=== PATIENT | female | born 1965 | race African-American/Black ===

== ENCOUNTER 2018-11-01 05:15 | Observation (INO) | payer OTHER ==
[~2018-11-01] VITALS: Ht 167.6 cm; Wt 122.5 kg
[~2018-11-01 05:15] MED LIST: ADDERALL 30 MG30 MG PO; EXCEDRIN EXTRA1 EAC1 PO; LISINOPRIL-HCT1 EAC1 PO
--- OUTSIDE RECORDS SUMMARY | 2018-11-01 05:57 | XMS REPORT | Continuity of Care Document ---
Author Author [facility] Organization [facility] Address Unknown Phone Unavailable Care Team Providers Care Aerospace Engineer Officer Armament Name Role Phone MD Chriss, Shanda PP Unavailable Insurance Providers Payer name Policy type / Coverage type Policy ID Covered democrat ID Policy Patrick [facility] (PPO) Encounters Encounter Performer Location Date Lab Report Shanda Banerjee MD [facility] [place] Feb 12, 2014 Medications Medication Instructions Start Date Status ANALPRAM-HC SINGLES 1-2.5 % CREA Apply twice a day with the applicator Jan 26, 2014 Active Vital Signs Date Description Test Result Jan 26, 2014 weight E&M - 3141-9 WEIGHT 263 lb Jan 26, 2014 blood pressure, systolic - 8480-6 BP SYSTOLIC 117 mm Hg Jan 26, 2014 blood pressure, diastolic - 8462-4 BP DIASTOLIC 78 mm Hg Jan 26, 2014 temperature E&M TEMPERATURE 98.5 deg f Jan 26, 2014 pulse rate E&M - 8867-4 PULSE RATE 80 /min Jan 26, 2014 height E&M - 8302-2 HEIGHT 66 in
--- OUTSIDE RECORDS SUMMARY | 2018-11-01 05:57 | XMS REPORT | Continuity of Care Document ---
Author Author [facility] Organization [facility] Address Unknown Phone Unavailable Care Team Providers Care Pewter Caster Name Role Phone MD Chriss, Shanda PP Unavailable Insurance Providers Payer name Policy type / Coverage type Policy ID Covered green party ID Policy Patrick [facility] (PPO) Encounters Encounter Performer Location Date Lab Report Shanda Banerjee MD [facility] [place] Feb 12, 2014 Allergies, Adverse Reactions, Alerts Type Substance Reaction Status Drug allergy PHENERGAN Active Problems Problem Effective Dates Problem Status BLOOD IN STOOL Feb 13, 2014 Active INTERNAL HEMORRHOIDS, WITHOUT COMPLICATION Feb 13, 2014 Active COLON POLYPS Feb 13, 2014 Active Procedures Date Description Comments Jan 26, 2014 smoking status never smoker Medications Medication Instructions Start Date Status ANALPRAM-HC [...]
--- OUTSIDE RECORDS SUMMARY | 2018-11-01 05:57 | XMS REPORT | Summary of Care ---
Author Author [facility] [place] Organization [facility] [place] Address Unknown Phone Unavailable Encounter ASHLEY Miramontes(FIN) [id number] Date(s): 11/03/17 - 11/03/17 [facility] [place] [address] [place] [address]- [phone] Discharge Disposition: Home or Self Care Attending Physician: Joel Cabezas MD Vital Signs No data available for this section Problem List Condition Effective Dates Status Health Status Informant Benign Active hypertension(Confirm ed) Colonic Active polyp(Confirmed) Hematochezia1 02/13/14 Active Internal hemorrhoids 02/13/14 Active without complication2 Laparoscopic-assiste Active d right colectomy(Confirmed) 1Data migrated from [employer] on 04/27/15. 2Data migrated from [employer] on 04/27/15. Allergies, Adverse Reactions, Alerts Substance Reaction Severity Status promethazine1 Active Phenergan Active 1Data migrated from [employer] on 03/29/15. Originally documented as PHENERGAN. Medications No data available for this section Results No data available for this section Immunizations No data available for this section Procedures Procedure Date Related Diagnosis Body Site Colonoscopy Diagnostic laparoscopy Social History Social History Type Response Alcohol Previous treatment: None. Smoking Status Never smoker; Exposure to Tobacco Smoke None; Cigarette Smoking Last 365 Days No; Reg Smoking Cessation Counseling No Assessment and Plan No data available for this section
--- OUTSIDE RECORDS SUMMARY | 2018-11-01 05:57 | XMS REPORT | Clinical Summary ---
Author Author [facility] Address Unknown Phone Unavailable Care Team Providers Care Receiver Stocker Name Role Phone Lissy Ely MD PCP Allergies Comments Active Allergy Reactions Severity Noted Date "Makes her crazy"-psychosis Promethazine High 01/03/2018 Medications End Date Status Medication Sig Dispensed Refills Start Date 03/24/2019 Active adapalene (DIFFERIN) 0.1 Apply 45 g 0 % creamIndications: topically 8 Keratosis pilaris nightly. Active ergocalciferol, vitamin Take by 0 D2, (VITAMIN D2 ORAL) mouth. 09/12/2019 Active buPROPion XL (WELLBUTRIN Take 1 tablet 90 tablet 3 XL) 150 MG 24 hr (150 mg 8 tabletIndications: total) by Anxiety and depression mouth daily. 09/13/2019 Active atorvastatin (LIPITOR) 20 Take 1 tablet 30 tablet 11 MG tabletIndications: (20 mg total) 8 Mixed hyperlipidemia by mouth daily. Default OP ins 09/30/2019 Active venlafaxine XR (EFFEXOR Take 1 90 capsule 3 XR) 75 MG 24 hr capsule (75 8 capsuleIndications: mg total) by Anxiety and depression, mouth daily. Moderate single current episode of major depressive disorder (HCC) Active lisinopril-hydrochlorothi Take 1 tablet 90 tablet 3 azide by mouth 8 (PRINZIDE,ZESTORETIC) daily. 20-25 mg per tabletIndications: Essential hypertension 11/16/2018 Active dextroamphetamine-ampheta Take 1 tablet 30 tablet 0 mine (ADDERALL) 30 mg (30 mg total) 8 tabletIndications: ADHD, by mouth adult residual type daily for 30 days. Max Daily Amount: 30 mg 01/03/2018 Discontinued lisinopril-hydrochlorothi Take 1 tablet 3 azide by mouth 7 (PRINZIDE,ZESTORETIC) daily. 20-25 mg per tablet 01/03/2018 Discontinued dextroamphetamine-ampheta Take 20 mg by 0 mine (ADDERALL) 20 mg mouth daily. tablet 10/17/2018 Discontinued lisinopril-hydrochlorothi Take 1 tablet 90 tablet 3 azide by mouth 8 (PRINZIDE,ZESTORETIC) daily. 20-25 mg per tabletIndications: Essential hypertension 01/27/2018 Discontinued dextroamphetamine-ampheta Take 1 tablet 30 tablet 0 mine (ADDERALL) 20 mg (20 mg total) 8 tabletIndications: by mouth Attention deficit daily for 30 hyperactivity disorder days. Max (ADHD), other type Daily Amount: 20 mg 01/27/2018 Discontinued buPROPion XL (WELLBUTRIN Take 1 tablet 90 tablet 3 XL) 150 MG 24 hr (150 mg 8 tabletIndications: total) by Anxiety and depression mouth daily. 07/29/2018 Discontinued ergocalciferol (VITAMIN Take 1 12 capsule 1 D2) 50,000 unit capsule 8 capsuleIndications: (50,000 Units Vitamin D deficiency total) by mouth once a week. 09/12/2018 Discontinued buPROPion XL (WELLBUTRIN Take 1 tablet 90 tablet 3 XL) 150 MG 24 hr (150 mg 8 tabletIndications: total) by Anxiety and depression mouth daily. 04/27/2018 dextroamphetamine-ampheta Take 1 tablet 90 tablet 0 mine (ADDERALL) 20 mg (20 mg total) 8 tabletIndications: by mouth Attention deficit daily for 90 hyperactivity disorder days. Max (ADHD), other type Daily Amount: 20 mg 03/24/2018 Discontinued triamcinolone (KENALOG) Apply 30 g 0 0.1 % topically 2 8 ointmentIndications: (two) times a Keratosis pilaris day. 07/29/2018 Discontinued hydrocortisone 2.5 % Apply 59 mL 0 lotionIndications: topically 2 8 Keratosis pilaris (two) times a day. 07/29/2018 Discontinued dextroamphetamine-ampheta Take 1 tablet 90 tablet 0 mine (ADDERALL) 30 mg (30 mg total) 8 tabletIndications: Adult by mouth ADHD daily for 120 days. Max Daily Amount: 30 mg 09/12/2018 Discontinued venlafaxine XR (EFFEXOR Take 1 30 capsule 11 XR) 37.5 MG 24 hr capsule (37.5 8 capsuleIndications: mg total) by Moderate single current mouth daily. episode of major depressive disorder (HCC) 08/28/2018 dexmethylphenidate Take 1 tablet 60 tablet 0 (FOCALIN) 5 MG (5 mg total) 8 tabletIndications: ADHD, by mouth 2 adult residual type (two) times a day for 30 days. Max Daily Amount: 10 mg 09/30/2018 Discontinued venlafaxine XR (EFFEXOR Take 1 30 capsule 11 XR) 75 MG 24 hr capsule (75 8 capsuleIndications: mg total) by Anxiety and depression, mouth daily. Moderate single current episode of major depressive disorder (HCC) 10/12/2018 dextroamphetamine-ampheta Take 1 tablet 30 tablet 0 mine (ADDERALL) 30 mg (30 mg total) 8 tabletIndications: ADHD, by mouth adult residual type daily for 30 days. Max Daily Amount: 30 mg 10/02/2018 azithromycin (ZITHROMAX) Take 2 6 tablet 0 250 MG tabletIndications: tablets the 8 Acute URI first day, then 1 tablet daily for 4 days. 10/28/2018 benzonatate (TESSALON Take 1 30 capsule 0 PERLES) 100 MG capsule (100 8 capsuleIndications: Acute mg total) by URI mouth 3 (three) times a day as needed for cough for up to 30 days. Status Hospital, Clinic, or Ordered Dose Route Frequency Start End Date Other Facility Date Administered Medication Ended dexamethasone (DECADRON) 10 mg IM once 09/28/20 injection 10 18 8 mgIndications: Acute URI Active Problems Problem Noted Date Attention deficit disorder 01/03/2018 Abnormal EKG 01/03/2018 Anxiety and depression 01/03/2018 Essential hypertension 01/03/2018 Encounters Care Team Description Date Type Specialty Lissy Ely MD Breast pain 10/28/2018 Hospital Radiology Encounter Lissy Ely MD Breast pain 10/28/2018 Hospital Radiology Encounter Kirsten Espinal MA ADHD, adult residual type (Primary Dx); Essential hypertension 10/14/2018 Telephone Family Medicine Lissy Ely MD Breast pain (Primary Dx) 10/04/2018 Telephone Access Lissy Ely MD Anxiety and depression; Moderate single current episode of major depressive disorder (HCC) 09/30/2018 Orders Only Family Medicine Elio Cesar MA Anxiety and depression; Moderate single current episode of major depressive disorder (HCC) 09/30/2018 Telephone Internal Medicine Lissy Ely MD Acute URI (Primary Dx) 09/28/2018 Office Visit Family Medicine Kirsten Espinal MA 09/13/2018 Telephone Family Medicine Lissy Ely MD Mixed hyperlipidemia (Primary Dx) 09/13/2018 Orders Only Family Medicine Lissy Ely MD ADHD, adult residual type (Primary Dx); Anxiety and depression; Moderate single current episode of major depressive disorder (HCC); Long-term use of high-risk medication; Lipid screening; Screening mammogram, encounter for 09/12/2018 Office Visit Family Medicine Lissy Ely MD ADHD, adult residual type (Primary Dx); Moderate single current episode of major depressive disorder 07/29/2018 Office Visit Family Medicine Kirsten Espinal MA 07/19/2018 Telephone Family Medicine Lissy Ely MD Vitamin D deficiency 06/12/2018 Refill Family Medicine Lissy Ely MD Adult ADHD (Primary Dx); Vitamin D deficiency 05/12/2018 Office Visit Family Lissy Jackson MD Screening mammogram, encounter for (Primary Dx); Cyst, dermoid, face; Skin lump of arm, left; Keratosis pilaris 03/24/2018 Office Visit Family Medicine Lissy Ely MD Essential hypertension (Primary Dx); Anxiety and depression; Attention deficit hyperactivity disorder (ADHD), other type 01/27/2018 Office Visit Family Lissy Jackson MD Vitamin D deficiency (Primary Dx) 01/04/2018 Orders Only Family Medicine Lissy Ely MD Routine check-up (Primary Dx); Essential hypertension; Screening for endocrine disorder; Screening, lipid; Encounter for vitamin deficiency screening; Need for Tdap vaccination; Need for influenza vaccination; Anxiety and depression; Attention deficit hyperactivity disorder (ADHD), other type; Abnormal EKG 01/03/2018 Office Visit Family Medicine after 10/31/2017 Immunizations Name Dates Previously Given Next Due INFLUENZA QUAD 01/03/2018 Tdap 01/03/2018 Family History Medical History Relation Name Comments ADD / ADHD Brother ADD / ADHD Daughter vyvanse and 11/30 adderall No Known Problems Father Breast cancer Maternal went to the bones Grandmother No Known Problems Mother Relation Name Status Comments Brother Alive Brother Alive Daughter Father Alive Maternal Grandmother Mother Alive Social History Date Tobacco Use Types Packs/Day Years Used Former Smoker Cigarettes Smokeless Tobacco: Never Used Alcohol Use Drinks/Week oz/Week Comments Yes wine socially Sex Assigned at Date Recorded Not on file Industry Job Start Date Occupation Not on file Not on file Not on file Travel End Travel History Travel Start No recent travel history available. Last Filed Vital Signs Time Taken Vital Sign Reading 09/28/2018 2:45 PM CDT Blood Pressure 126/87 09/28/2018 2:45 PM CDT Pulse 91 09/28/2018 2:45 PM CDT Temperature 36.8 C (98.3 F) 09/28/2018 2:45 PM CDT Respiratory Rate 20 09/28/2018 2:45 PM CDT Oxygen Saturation 100% - Inhaled Oxygen - Concentration 09/28/2018 2:45 PM CDT Weight 120 kg (265 lb) 09/28/2018 2:45 PM CDT Height 166.4 cm (5' 5.5") 09/28/2018 2:45 PM CDT Body Mass Index 43.43 Plan of Treatment Health Maintenance Due Date Last Done Comments INFLUENZA VACCINE 06/29/2018 01/03/2018 CERVICAL CANCER SCREENING 01/28/2020 01/27/2017 (Previously completed) BREAST CANCER SCREENING 10/28/2020 10/28/2018 COLON CANCER SCREENING 01/27/2022 01/28/2012 (Previously completed) SHINGRIX VACCINE (1 of 2) 03/24/2028 Postponed from 2013 (Not Indicated) HEPATITIS B VACCINES Aged Out No longer eligible based on patient's age to complete this topic IPV VACCINES Aged Out No longer eligible based on patient's age to complete this topic MENINGOCOCCAL VACCINE Aged Out No longer eligible based on patient's age to complete this topic Procedures Comments Procedure Name Priority Date/Time Associated Diagnosis MAMMO BREAST DIAGNOSTIC Routine 10/28/2018 Breast pain TOMOSYNTHESIS BILATERAL 1:43 PM CORPORATE SECURITY MANAGER MICROSCOPIC EXAMINATION Routine 09/12/2018 12:43 PM CDT URINALYSIS, AUTOMATED Routine 09/12/2018 Long-term use of WITH MICROSCOPY 12:43 PM CDT high-risk medication THYROID STIMULATING Routine 09/12/2018 Long-term use of HORMONE 12:43 PM CDT high-risk medication HEMOGLOBIN A1C Routine 09/12/2018 Long-term use of 12:43 PM CDT high-risk medication LIPID PANEL Routine 09/12/2018 Lipid screening 12:43 PM CDT CBC WITH PLATELET AND Routine 09/12/2018 Long-term use of DIFFERENTIAL 12:43 PM CDT high-risk medication COMPREHENSIVE METABOLIC Routine 09/12/2018 Long-term use of PANEL 12:43 PM CDT high-risk medication VITAMIN D 25 HYDROXY Routine 05/12/2018 Vitamin D deficiency LEVEL 11:52 AM CDT ECG 12-LEAD Routine 01/03/2018 Essential hypertension 12:15 PM CORPORATE SECURITY MANAGER VITAMIN B12 LEVEL Routine 01/03/2018 Encounter for vitamin 12:01 PM CORPORATE SECURITY MANAGER deficiency screening VITAMIN D 25 HYDROXY Routine 01/03/2018 Encounter for vitamin LEVEL 12:01 PM CORPORATE SECURITY MANAGER deficiency screening THYROID STIMULATING Routine 01/03/2018 Screening for endocrine HORMONE 12:01 PM CORPORATE SECURITY MANAGER disorder CBC WITH PLATELET AND Routine 01/03/2018 Screening for endocrine DIFFERENTIAL 12:01 PM CORPORATE SECURITY MANAGER disorder COMPREHENSIVE METABOLIC Routine 01/03/2018 Essential hypertension PANEL 12:01 PM CORPORATE SECURITY MANAGER Screening for endocrine disorder LIPID PANEL Routine 01/03/2018 Screening, lipid 12:01 PM CORPORATE SECURITY MANAGER after 10/31/2017 Results * Mammo Breast Diagnostic Tomosynthesis Bilateral (10/28/2018 1:43 PM CORPORATE SECURITY MANAGER) Narrative Performed At PROCEDURE: MAMMO BREAST DIAGNOSTIC TOMOSYNTHESIS BILATERAL [facility] Computer aided detection was utilized for the interpretation of the diagnostic mammography. HISTORY:N64.4 Mastodynia, breast pain COMPARISON: None available DENSITY: The breast are almost entirely fatty. FINDINGS: No abnormal calcification or mass or skin thickening. No architectural distortion. No abnormal adenopathy. IMPRESSION: RECOMMENDATION: Correlation with physical exam and annual mammography. BI-RADS 1:NEGATIVE This facility is accredited by the [employer] for Mammography. A negative x-ray report should not delay biopsy if a dominant or clinically suspicious mass is present.Not all cancers are identified by x-ray. [id number] Procedure Note Interface, Radiology Results Incoming - 10/28/2018 1:55 PM CORPORATE SECURITY MANAGER PROCEDURE: MAMMO BREAST DIAGNOSTIC TOMOSYNTHESIS BILATERAL Computer aided detection was utilized for the interpretation of the diagnostic mammography. HISTORY: N64.4 Mastodynia, breast pain COMPARISON: None available DENSITY: The breast are almost entirely fatty. FINDINGS: No abnormal calcification or mass or skin thickening. No architectural distortion. No abnormal adenopathy. IMPRESSION: RECOMMENDATION: Correlation with physical exam and annual mammography. BI-RADS 1: NEGATIVE This facility is accredited by the [employer] for Mammography. A negative x-ray report should not delay biopsy if a dominant or clinically suspicious mass is present. Not all cancers are identified by x-ray. [id number] Performing Organization Address City/State/Zipcode Phone Number [facility] [address] [place] [address] * Microscopic Examination (09/12/2018 12:43 PM CDT) WBC, UA 0-5 0 - 5 /hpf [facility] RBC, UA 0-2 0 - 2 /hpf [facility] Epithelial cells (non >10 (A) 0 - 10 /hpf [facility] renal) Casts Present (A) None seen /lpf [facility] Cast type Hyaline casts N/A [facility] Mucus, UA Present Not Estab. [facility] Bacteria, UA Few None seen/Few [facility] Narrative Performed At Performed at: [facility] [address], [id number] [employer] Operator: Haile Singleton MD, Phone:[phone] Performing Organization Address [facility] Phone Number [facility] * Urinalysis, automated with microscopy (09/12/2018 12:43 PM CDT) Specific gravity, urine 1.021 1.005 - 1.030 [facility] pH, urine 7.0 5.0 - 7.5 [facility] Color, UA Yellow Yellow [facility] Appearance Clear Clear [facility] WBC esterase, urine Negative Negative [facility] Protein, UA Negative Negative/Trace [facility] Glucose, urine Negative Negative [facility] Ketones, UA Negative Negative [facility] Occult blood, urine Negative Negative [facility] Bilirubin, UA Negative Negative [facility] Urobilinogen, UA 0.2 0.2 - 1.0 mg/dL [facility] Nitrite, UA Negative Negative [facility] Microscopic examination CommentComment: Microscopic [facility] follows if indicated. Microscopic examination See below:Comment: Microscopic [facility] was indicated and was performed. Specimen Urine Narrative Performed At Performed at: [facility] [address], [id number] [employer] Operator: Haile Singleton MD, Phone:[phone] Performing Organization Address [facility] Phone Number [facility] * CBC with platelet and differential (09/12/2018 12:43 PM CDT) Only the most recent of 2 results within the time period is included. WBC 5.1 3.4 - 10.8 x10E3/uL [facility] RBC 4.15 3.77 - 5.28 x10E6/uL [facility] HGB 12.3 11.1 - 15.9 g/dL [facility] HCT 39.0 34.0 - 46.6 % [facility] MCV 94 79 - 97 fL [facility] MCH 29.6 26.6 - 33.0 pg [facility] MCHC 31.5 31.5 - 35.7 g/dL [facility] RDW 12.8 12.3 - 15.4 % [facility] Platelet count 305 150 - 379 x10E3/uL [facility] Neutrophils 38 Not Estab. % [facility] Lymphocytes 53 Not Estab. % [facility] Monocytes 6 Not Estab. % [facility] Eosinophils 2 Not Estab. % [facility] Basophils 1 Not Estab. % [facility] Neutrophils, absolute 2.0 1.4 - 7.0 x10E3/uL [facility] Lymphocytes, absolute 2.7 0.7 - 3.1 x10E3/uL [facility] Monocytes, absolute 0.3 0.1 - 0.9 x10E3/uL [facility] Eosinophils, absolute 0.1 0.0 - 0.4 x10E3/uL [facility] Basophils, absolute 0.0 0.0 - 0.2 x10E3/uL [facility] Immature granulocytes 0 Not Estab. % [facility] Immature grans (abs) 0.0 0.0 - 0.1 x10E3/uL [facility] Specimen Blood Narrative Performed At Performed at:[address] [place], [place] [id number] [employer] Operator: Haile Singleton MD, Phone:[phone] Performing Organization Address [facility] Number [facility] * Thyroid stimulating hormone (09/12/2018 12:43 PM CDT) Only the most recent of 2 results within the time period is included. TSH 2.660 0.450 - 4.500 uIU/mL [facility] Specimen Blood Narrative Performed At Performed at: [id number] [employer] Operator: Haile Singleton MD, Phone:[phone] Performing Organization Address [facility] Phone Number [facility] * Hemoglobin A1c (09/12/2018 12:43 PM CDT) Hemoglobin A1C 5.2 4.8 - 5.6 % [facility] Comment: Prediabetes: 5.7 - 6.4 Diabetes: >6.4 Glycemic control for adults with diabetes: <7.0 Specimen Blood Narrative Performed At Performed at:[address] [place], [place] [id number] [employer] Operator: Haile Singleton MD, Phone:[phone] Performing Organization Address [facility] Phone Number [facility] * Lipid panel (09/12/2018 12:43 PM CDT) Only the most recent of 2 results within the time period is included. Cholesterol 241 (H) 100 - 199 mg/dL [facility] Triglycerides 100 0 - 149 mg/dL [facility] HDL cholesterol 69 >39 mg/dL [facility] VLDL cholesterol gutierrez 20 5 - 40 mg/dL [facility] LDL cholesterol 152 (H) 0 - 99 mg/dL [facility] calculated Non-HDL cholesterol 172 (H) 0 - 129 mg/dL [facility] Specimen Blood Narrative Performed At [facility]formed at: [facility] [address] [place] [address], [id number] [employer] Operator: Haile Singleton MD, Phone:[phone] Performing Organization Address City/State/Zipcode Phone Number [facility] * Comprehensive metabolic panel (09/12/2018 12:43 PM CDT) Only the most recent of 2 results within the time period is included. Glucose 78 65 - 99 mg/dL [facility] BUN, whole blood 13 6 - 24 mg/dL [facility] Creatinine 0.75 0.57 - 1.00 mg/dL [facility] EGFR Non-Afr. [place] 90 >59 mL/min/1.73 [facility] EGFR 104 >59 mL/min/1.73 [facility] BUN/creatinine ratio 17 9 - 23 [facility] Sodium 139 134 - 144 mmol/L [facility] Potassium 4.4 3.5 - 5.2 mmol/L [facility] Chloride 99 96 - 106 mmol/L [facility] CO2 26 20 - 29 mmol/L [facility] Calcium 9.8 8.7 - 10.2 mg/dL [facility] Protein 6.8 6.0 - 8.5 g/dL [facility] Albumin, S 4.5 3.5 - 5.5 g/dL [facility] Globulin, total 2.3 1.5 - 4.5 g/dL [facility] Albumin/globulin ratio 2.0 1.2 - 2.2 [facility] Total bilirubin 0.3 0.0 - 1.2 mg/dL [facility] Alkaline phosphatase 93 39 - 117 IU/L [facility] AST 27 0 - 40 IU/L [facility] ALT 19 0 - 32 IU/L [facility] Specimen Blood Narrative Performed At Performed at: - [facility] [address], [id number] [employer] Operator: Haile Singleton MD, Phone:[phone] Performing Organization Address [facility] Phone Number [facility] * Vitamin D 25 hydroxy level (05/12/2018 11:52 AM CDT) Only the most recent of 2 results within the time period is included. Vitamin D, 25-hydroxy 31.6 30.0 - 100.0 ng/mL [facility] Comment: Vitamin D deficiency has been defined by the [place] [employer] and an Endocrine Society practice guideline as a level of serum 25-OH vitamin D less than 20 ng/mL (1,2). The Endocrine Society went on to further define vitamin D insufficiency as a level between 21 and 29 ng/mL (2). 1. IOM ([place] [employer]). 2010. Dietary reference intakes for calcium and D. [place]: The National Academies Press. 2. Staci MF, Sher NC, Deneen POLLACK, et al. Evaluation, treatment, and prevention of vitamin D deficiency: an Endocrine Society clinical practice guideline. JCEM. 2010; 96(7):1911-30. Specimen Blood Narrative Performed At Performed at: - [facility] [address], [id number] [employer] Operator: Haile Singleton MD, Phone:[phone] Performing Organization Address [facility] Phone Number [facility] * ECG 12 lead (01/03/2018 12:15 PM CORPORATE SECURITY MANAGER) Ventricular rate 80 [facility] Atrial rate 80 [facility] KS interval 154 [facility] QRSD interval 82 [facility] QT interval 402 [facility] QTC interval 463 [facility] P axis 1 39 [facility] QRS axis 1 -4 [facility] T wave axis 7 [facility] EKG impression Normal sinus rhythm-Possible [facility] Left atrial enlargement-T wave abnormality, consider anterior ischemia-Prolonged QT-Abnormal ECG-No previous ECGs available- Performing Organization Address [facility] Phone Number [facility] [address] [place] [address] * Vitamin B12 level (01/03/2018 12:01 PM CORPORATE SECURITY MANAGER) Vitamin B12 971 232 - 1,245 pg/mL [facility] Specimen Blood Narrative Performed At Performed at:01 - [facility] [address], [id number] [employer] Operator: Haile Singleton MD, Phone:[phone] Performing Organization Address City/State/Zipcode Phone Number [facility] after 10/31/2017 Insurance Payer Benefit Subscriber ID Type Phone Address Plan / Group [facility] xxxxxxxxx HMO/PPO THCARE CHOICE/CHO ICE + Advance Directives Patient has advance care planning documents on file. For more information, kevin lane contact: Peter Willis [address] [place] [address]
--- OUTSIDE RECORDS SUMMARY | 2018-11-01 05:57 | XMS REPORT | Continuity of Care Document ---
Author Author [facility] Interface Address Unknown Phone Unavailable Problems Problem Status Onset Date Classification Date Reported Comments Source M54.2 - CERVICALGIA Active 11/03/2017 [facility] [place] 626.2 - EXCESSIVE MENST Active 04/08/2015 [facility] [place] BLOOD IN STOOL Active 02/13/2014 Condition 02/12/2014 [facility] INTERNAL HEMORRHOIDS, WITHOUT COMPLICATION Active 02/13/2014 Condition 02/12/2014 [facility] COLON POLYPS Active 02/13/2014 Condition 02/12/2014 [facility] Hematochezia<sup>1</sup> Active 02/13/2014 Problem 11/06/2017 Data migrated from [employer] on 04/27/15. [facility] [place] Internal hemorrhoids without complication<sup>2</sup> Active 02/13/2014 Problem 11/06/2017 Data migrated from [employer] on 04/27/15. [facility] [place] V76.51 Active 01/29/2014 [facility] UNK Active 01/29/2014 [facility] Benign hypertension Active Problem 11/06/2017 [facility] [place],[facility] Colonic polyp Active Problem 11/06/2017 [facility] [place],[facility] Laparoscopic-assisted right colectomy Active Problem 11/06/2017 [facility] [place],[facility] Medications Medication Details Route Status Patient Instructions Ordering Provider Order Date Source Flumazenil 0.1 mg, 1 mL, Route: IVP, Drug form: INJ, Q5Min, Dosing Weight 118.182, kg, PRN Other -See Comment, Start date: 02/13/14 12:09:00, Duration: 30 day, Stop date: 03/15/14 12:08:00(Same as: Romazicon) Inactive 02/13/2014 [facility] Naloxone 0.1 mg, 0.25 mL, Route: IVP, Drug form: INJ, Q2MIN, Dosing Weight 118.182, kg, PRN Narcotic Reversal, Start date: 02/13/14 12:09:00, Duration: 4 doses or times, Stop date: Limited # of timesSame as N arcan Inactive 02/13/2014 [facility] Sodium Chloride 0.154 MEQ/ML Injectable Solution 500 mL, Rate: 25 ml/hr, Infuse over: 20 hr, Route: IV, Dosing Weight 118.182 kg, Total Volume: 500, Start date: 02/13/14 9:15:00, Duration: 30 day, Stop date: 03/15/14 9:14:00 Inactive 02/13/2014 [facility] Hydrochlorothiazide 25 MG / Lisinopril 20 MG Oral Tablet 1 tab, PO, Daily, # 30 tab, 0 Refill(s) Active 02/09/2014 [facility] ANALPRAM-HC SINGLES 1-2.5 % CREA Apply twice a day with the applicator Active 01/26/2014 [facility] Allergies, Adverse Reactions, Alerts Substance Category Reaction Severity Reaction type Status Date Reported Comments Source PHENERGAN Drug allergy PHENERGAN 01/26/2014 [facility] promethazine<sup>1</sup> Assertion Drug allergy Active 01/26/2014 Data migrated from [employer] on 03/29/15. Originally documented as PHENERGAN. OPIJuan Diego [place] Phenergan Assertion Drug allergy Active [facility] [place] Immunizations Immunization Date Given Site Status Last Updated Comments Source Results Order Name Results Value Reference Range Date Interpretation Comments Source Spine cervical series DX Spine cervical series DX EXAM: Spine cervical series DX HISTORY: - pain cervical COMPARISON: None AP, odontoid, lateral and oblique views of the cervical spine. AP alignment is normal. There is no evidence of vertebral body or disc space height loss. No fracture is seen. No significant neural foraminal narrowing is radiographically apparent. IMPRESSION: Unremarkable radiographic appearance of the cervical spine. 11/03/2017 - - Read by: Zack Mott MD Dictated Date/time: 11/03/17 14:11 Electronically Signed by: Zack Mott MD 11/03/17 14:12 FINAL REPORT TIBURCIO [facility]man URINE CHEM U Preg Negative (02/13/2014 08:00:00 [facility]) Negative 02/13/2014 [facility] ELECTROLYTES AGAP 11.4 meq/L 10.0 - 20.0 02/09/2014 [facility] ELECTROLYTES eGFR 99 mL/min/1.73m2 02/09/2014 1Result Comment: The eGFR is calculated using the CKD-EPI formula. In most young, healthy individuals the eGFR will be >90 mL/min/1.73m2. The eGFR declines with age. An eGFR of 60-89 may be normal in some populations, particularly the elderly, for whom the CKD-EPI formula has not been extensively validated. Use of the eGFR is not recommended in the following populations: Individuals with unstable creatinine concentrations, including patients and those with serious co-morbid conditions. Patients with extremes in muscle mass or diet. The data above are obtained from the National Kidney Disease Education Program (NKDEP) which additionally recommends that when the eGFR is used in patients with extremes of body mass index for purposes of drug dosing, the eGFR should be multiplied by the estimated BMI. [facility] ELECTROLYTES Glucose Lvl 90 mg/dL 70 - 99 02/09/2014 2Interpretive Data: Adult reference range values reflect the clinical guidelines of the [place] [employer]. [facility] ELECTROLYTES BUN 17 mg/dL 7 - 22 02/09/2014 [facility] ELECTROLYTES Calcium Lvl 9.5 mg/dL 8.5 - 10.5 02/09/2014 [facility] ELECTROLYTES Sodium Lvl 137 meq/L 135 - 145 02/09/2014 [facility] ELECTROLYTES Creatinine Lvl 0.8 mg/dL 0.5 - 1.4 02/09/2014 [facility] ELECTROLYTES Chloride Lvl 103 meq/L 95 - 109 02/09/2014 [facility] ELECTROLYTES CO2 27 meq/L 24 - 32 02/09/2014 [facility] ELECTROLYTES Potassium Lvl 4.4 meq/L 3.5 - 5.1 02/09/2014 [facility] HEMATOLOGY Hgb 13.3 g/dL 12.0 - 16.0 02/09/2014 [facility] HEMATOLOGY Hct 39.5 % 36.0 - 48.0 02/09/2014 [facility] Vital Signs Vital Sign Value Date Comments Source Diastolic (mm Hg) 79 02/13/2014 [facility] Systolic (mm Hg) 154 02/13/2014 [facility] Respitory Rate 18 02/13/2014 [facility] Systolic (mm Hg) 141 02/13/2014 [facility] Diastolic (mm Hg) 81 02/13/2014 [facility] Respitory Rate 18 02/13/2014 [facility] Diastolic (mm Hg) 71 02/13/2014 [facility] Respitory Rate 17 02/13/2014 [facility] Systolic (mm Hg) 138 02/13/2014 [facility] Heart Rate 78 02/09/2014 [facility] Temperature Oral (F) 98.6 F 02/09/2014 [facility] Height 167.64 cm 02/09/2014 [facility] BMI Calculated 42.05 02/09/2014 [facility] Weight 118.182 02/09/2014 [facility] Weight 263 01/26/2014 [facility] Systolic (mm Hg) 117 01/26/2014 [facility] Diastolic (mm Hg) 78 01/26/2014 [facility] Temperature Oral (F) 98.5 F 01/26/2014 [facility] Heart Rate 80 01/26/2014 [facility] Height 66 01/26/2014 [facility] Encounters Location Location Details Encounter Type Encounter Number Reason For Visit Attending Provider ADM Date DC Date Status Source [facility] Lab Report [id number] Shanda Banerjee MD 02/12/2014 02/12/2014 [facility] Bedded Outpatient [id number] Shanda Banerjee 02/13/2014 02/13/2014 [facility] - [place] [facility] [id number] Joel Cabezas 11/03/2017 11/04/2017 [facility] [place] Procedures Procedure Code Date Perfomer Comments Source Colonoscopy [id number] [facility] [place] Diagnostic laparoscopy [id number] [facility] [place] Colonoscopy [id number] [facility] Diagnostic laparoscopy [id number] [facility]
--- OUTSIDE RECORDS SUMMARY | 2018-11-01 05:57 | XMS REPORT | Summary of Care ---
Author Organization Unknown Address Unknown Phone Unavailable Encounter Dates Location Diagnoses Discharge Providers Disposition 02/13/2014 [facility] 02/13/2014 [address] [place], [place] [id number] [place] [address] Reason for Visit V76.51 Vital Signs 1 2 3 Most recent to oldest [Reference Range]: 167.64 cm (02/09/2014 13:58:00 [facility]) Height 98.6 DegF (02/09/2014 14:19:00 [facility]) Temperature Oral [96.4-99.1 DegF] 154 mmHg *HI* (02/13/2014 10:30:00 [facility]) 141 mmHg *HI* (02/13/2014 10:15:00 [facility]) 138 mmHg (02/13/2014 10:00:00 [facility]) Systolic Blood Pressure [90-140 mmHg] 79 mmHg (02/13/2014 10:30:00 [facility]) 81 mmHg (02/13/2014 10:15:00 [facility]) 71 mmHg (02/13/2014 10:00:00 [facility] Diastolic Blood Pressure [60-90 mmHg] 18 BRMIN (02/13/2014 10:30:00 [facility]) 18 BRMIN (02/13/2014 10:15:00 [facility]) 17 BRMIN (02/13/2014 10:00:00 [facility]) Respiratory Rate [14-20 BRMIN] 78 bpm (02/09/2014 14:19:00 [facility]) Peripheral Pulse Rate [60-100 bpm] 118.182 kg (02/09/2014 13:58:00 [facility]) Weight 42.05 m2 (02/09/2014 13:58:00 [facility]) Body Mass Index Problem List Condition Effective Dates Status Health Status Informant Benign Active hypertension(Confirm ed) Colonic Active polyp(Confirmed) Laparoscopic-assiste Active d right colectomy(Confirmed) Allergies, Adverse Reactions, Alerts Status Substance Reaction Severity Active Phenergan Medications Medication Instructions Start Date Stop Date Status flumazenil 0.1 mg, 1 mL, Route: IVP, Drug 02/13/2014 02/13/2014 Discontinued form: INJ, Q5Min, Dosing Weight 118.182, kg, PRN Other -See Comment, Start date: 02/13/14 12:09:00, Duration: 30 day, Stop date: 03/15/14 12:08:00 (Same as: Romazicon) flumazenil 0.2 mg, 2 mL, Route: IVP, Drug 02/13/2014 02/13/2014 Discontinued form: INJ, PRN, Dosing Weight 118.182, kg, PRN Other -See Comment, Start date: 02/13/14 12:09:00, Duration: 1 doses or times, Stop date: Limited # of times (Same as: Romazicon) hydrochlorothiazide- 1 tab, PO, Daily, # 30 tab, 0 02/09/2014 Ordered lisinopril 25 mg-20 Refill(s) mg oral tablet naloxone 0.1 mg, 0.25 mL, Route: IVP, Drug 02/13/2014 02/13/2014 Discontinued form: INJ, Q2MIN, Dosing Weight 118.182, kg, PRN Narcotic Reversal, Start date: 02/13/14 12:09:00, Duration: 4 doses or times, Stop date: Limited # of times Same as Narcan Sodium Chloride 0.9% 500 mL, Rate: 25 ml/hr, Infuse 02/13/2014 02/13/2014 Discontinued IV 500 mL over: 20 hr, Route: IV, Dosing Weight 118.182 kg, Total Volume: 500, Start date: 02/13/14 9:15:00, Duration: 30 day, Stop date: 03/15/14 9:14:00 Results ELECTROLYTES Most recent to 1 oldest [Reference Range]: Sodium Lvl [135-145 137 mEq/L mEq/L] (02/09/2014 14:30:00 [facility]) Potassium Lvl 4.4 mEq/L [3.5-5.1 mEq/L] (02/09/2014 [facility]) Chloride Lvl [95-109 103 mEq/L mEq/L] (02/09/2014 [facility]) CO2 [24-32 mEq/L] 27 mEq/L (02/09/2014 [facility]) AGAP [10.0-20.0 11.4 mEq/L mEq/L] (02/09/2014 [facility]) CHEM PANEL Most recent to 1 oldest [Reference Range]: Creatinine Lvl 0.8 mg/dL [0.5-1.4 mg/dL] (02/09/2014 [facility]) eGFR 99 mL/min/1.73m2 1 *NA* (02/09/2014 [facility]) BUN [7-22 mg/dL] 17 mg/dL (02/09/2014 [facility]) Glucose Lvl [70-99 90 mg/dL 2 mg/dL] (02/09/2014 [facility]) Calcium Lvl 9.5 mg/dL [8.5-10.5 mg/dL] (02/09/2014 [facility]) 1Result Comment: The eGFR is calculated using [...] from the National Kidney Disease Education Program ( NKDEP) which additionally recommends that when the eGFR is used in patients with extremes of body mass index for purposes of drug dosing, the eGFR should be mul tiplied by the estimated BMI. 2Interpretive Data: Adult reference range values reflect the clinical guidelines of the [place] [employer]. URINE CHEM Most recent to 1 oldest [Reference Range]: U Preg [Negative] Negative (02/13/2014 08:00:00 [facility]) HEMATOLOGY Most recent to 1 oldest [Reference Range]: Hgb [12.0-16.0 g/dL] 13.3 g/dL (02/09/2014 14:30:00 [facility]) Hct [36.0-48.0 %] 39.5 % (02/09/2014 14:30:00 [facility]) Medications Administered During Your Visit No data available for this section Immunizations No data available for this section Procedures Procedure Type Body Site Date of Procedure Related Diagnosis Colonoscopy Diagnostic laparoscopy Social History Social History Type Response Alcohol Previous treatment: None. Smoking Status Use: Never smoker. Tobacco smoke exposure: None. Did the Patient Smoke Cigarettes Anytime During the Last 365 Days? No. Cessation Counseling Provided? No.
[2018-11-01] MEDS ORDERED: CEFAZOLIN SOD 1 GM/D5W 50ML 50 ML IV ONE (06:16)
[2018-11-01] MEDS ORDERED: HYDROMORPHONE 2MG/ML 2 MG/ML ML ONE (08:13)
[2018-11-01] MEDS ORDERED: BACITRACIN 50,000 UNIT VIAL ONE (08:31)
[2018-11-01] MEDS ORDERED: ACETAMINOPHEN 325 MG TAB PO PRN (14:45)
[2018-11-01] MEDS ORDERED: HYDROMORPHONE 1MG/1ML INJ IV PRN (14:45)
[2018-11-01] MEDS ORDERED: ONDANSETRON HCL INJ 2 MG/ML VIAL ONE ×2 (15:01→19:12)
[2018-11-01] MEDS ORDERED: FENTANYL CITRATE/PF 100MCG/2 ML INJ ONE ×2 (15:03→17:33)
[2018-11-01] MEDS ORDERED: METOCLOPRAMIDE HCL 10 MG/2ML VIAL ONE (15:08)
--- OUTSIDE RECORDS SUMMARY | 2018-11-01 15:55 | XMS REPORT | Clinical Summary ---
Author Author [facility] [place] [facility] Address Unknown Phone Unavailable Care Team Providers Care [employer] Name Role Phone Lissy Ely MD PCP [...] 10/28/2018 Breast pain TOMOSYNTHESIS BILATERAL 1:43 PM TILE SETTER MICROSCOPIC EXAMINATION Routine 09/12/2018 12:43 PM CDT [...] 12-LEAD Routine 01/03/2018 Essential hypertension 12:15 PM TILE SETTER VITAMIN B12 LEVEL Routine 01/03/2018 Encounter for vitamin 12:01 PM TILE SETTER deficiency screening VITAMIN D 25 HYDROXY Routine 01/03/2018 Encounter for vitamin LEVEL 12:01 PM TILE SETTER deficiency screening THYROID STIMULATING Routine 01/03/2018 Screening for endocrine HORMONE 12:01 PM TILE SETTER disorder CBC WITH PLATELET AND Routine 01/03/2018 Screening for endocrine DIFFERENTIAL 12:01 PM TILE SETTER disorder COMPREHENSIVE METABOLIC Routine 01/03/2018 Essential hypertension PANEL 12:01 PM TILE SETTER Screening for endocrine disorder LIPID PANEL Routine 01/03/2018 Screening, lipid 12:01 PM TILE SETTER after 10/31/2017 Results * Mammo Breast Diagnostic Tomosynthesis Bilateral (10/28/2018 1:43 PM TILE SETTER) Narrative Performed At PROCEDURE: MAMMO BREAST DIAGNOSTIC TOMOSYNTHESIS BILATERAL MEGAN Computer aided detection was utilized for the interpretation of the diagnostic mammography. HISTORY:N64.4 Mastodynia, breast pain COMPARISON: None available DENSITY: The breast are almost entirely fatty. FINDINGS: No abnormal calcification or mass or skin thickening. No architectural distortion. No abnormal adenopathy. IMPRESSION: RECOMMENDATION: Correlation with physical exam and annual mammography. BI-RADS 1:NEGATIVE This facility is accredited by the [place] [employer] for Mammography. A negative x-ray report should not delay biopsy if a dominant or clinically suspicious mass is present.Not all cancers are identified by x-ray. [id number] Performing Organization Address [facility]/Zipcode Phone Number [facility] [address] [place] [address] * Microscopic Examination (09/12/2018 12:43 PM CDT) [...] [facility] Narrative Performed At Performed at: - [facility] [address] [place], [id number] Equine Manager: Haile Singleton MD, Phone:[phone] Performing Organization Address City/[facility]/Zipcode Phone Number [facility] * Urinalysis, automated with [...] performed. Specimen Urine Narrative Performed At Performed at:01 - [facility] [address] [place], [id number] Equine Manager: Haile iSngleton MD, Phone:[phone] Performing Organization Address City/State/Zipcode Phone Number [facility] * CBC with platelet [...] Specimen Blood Narrative Performed At Performed at: [id number] Equine Manager: Haile Singleton MD, Phone:[phone] Performing Organization Address [facility] [place] Phone Number [facility] * Thyroid stimulating hormone (09/12/2018 12:43 PM CDT) Only the most recent of 2 results within the time period is included. TSH 2.660 0.450 - 4.500 uIU/mL [facility] Specimen Blood Narrative Performed At Performed at: [id number] Equine Manager: Haile Singleton MD, Phone:[phone] Performing Organization Address [facility] [place] Phone Number [facility] * Hemoglobin A1c (09/12/2018 12:43 PM CDT) Hemoglobin A1C 5.2 4.8 - 5.6 % [facility] Comment: Prediabetes: 5.7 - 6.4 Diabetes: >6.4 Glycemic control for adults with diabetes: <7.0 Specimen Blood Narrative Performed At Performed at: [id number] Equine Manager: Haile Singleton MD, Phone:[phone] Performing Organization Address [facility] [place] Phone Number [facility] * Lipid panel (09/12/2018 12:43 PM CDT) [...] Specimen Blood Narrative Performed At Performed at: [id number] Equine Manager: Haile Singleton MD, Phone:[phone] Performing Organization Address [facility] Phone Number [facility] * Comprehensive metabolic panel (09/12/2018 12:43 PM CDT) Only the most recent of 2 results within the time period is included. Glucose 78 65 - 99 mg/dL [facility] BUN, whole blood 13 6 - 24 mg/dL [facility] Creatinine 0.75 0.57 - 1.00 mg/dL [facility] EGFR Non-Afr. [place] 90 >59 mL/min/1.73 [facility] EGFR 104 >59 [...] Blood Narrative Performed At Performed at:01 - [facility] [address] [place], [id number] Equine Manager: Haile Singleton MD, Phone:[phone] Performing Organization Address [facility] [place] Phone Number [facility] * Vitamin D 25 hydroxy level (05/12/2018 11:52 AM CDT) Only the most recent of 2 results within the time period is included. Vitamin D, 25-hydroxy 31.6 30.0 - 100.0 ng/mL [facility] Comment: Vitamin D deficiency has been defined by the [place] of Medicine and an Endocrine Society practice guideline as a level of serum 25-OH vitamin D less than 20 ng/mL (1,2). The Endocrine Society went on to further define vitamin D insufficiency as a level between 21 and 29 ng/mL (2). 1. IOM ([place] of Medicine). 2010. Dietary reference intakes for calcium and D. [place]: The National Academies Press. 2. Staci MF, Sher NELSON, Deneen POLLACK, et al. Evaluation, treatment, and prevention of vitamin D deficiency: an Endocrine Society clinical practice guideline. JCEM. 2010; 96(7):1911-30. Specimen Blood Narrative Performed At Performed at: - [facility] [place] [facility] [address] [place], [id number] Equine Manager: Haile Singleton MD, Phone:[phone] Performing Organization Address City/[facility] Phone [facility] * ECG 12 lead (01/03/2018 12:15 PM TILE SETTER) Ventricular rate 80 [facility] Atrial rate 80 [facility] AK interval 154 [facility] QRSD interval 82 [facility] QT interval 402 [facility] QTC interval 463 [facility] P axis 1 39 [facility] QRS axis 1 -4 [facility] T wave axis 7 [facility] EKG impression Normal sinus rhythm-Possible [facility] Left atrial enlargement-T wave abnormality, consider anterior ischemia-Prolonged QT-Abnormal ECG-No previous ECGs available- Performing Organization Address [facility] Phone Number [facility] [address] [place] [address] * Vitamin B12 level (01/03/2018 12:01 PM TILE SETTER) Vitamin B12 971 232 - 1,245 pg/mL [facility] Specimen Blood Narrative Performed At Performed at: [facility] [address] [place], [id number] Equine Manager: Haile Singleton MD, Phone:[phone] Performing Organization Address [facility] Phone Number [facility] after 10/31/2017 Insurance Payer Benefit Subscriber ID Type Phone Address Plan / Group [facility] xxxxxxxxx HMO/PPO THCARE CHOICE/CHO ICE + Advance Directives Patient has advance care planning documents on file. For more information, kevin lane contact: Peter Willis [address] [place] [address]
[2018-11-01] MEDS: LACTATED RINGER'S 1,000 ML IV SCH (16:15)
[2018-11-01] MEDS: CEFAZOLIN SOD 1 GM/D5W 50ML 50 ML IV SCH ×2 (16:45→21:19)
[2018-11-01 16:51] VITALS: BP 183/90
[2018-11-01] MEDS ORDERED: DOCUSATE SODIUM 100 MG CAP PO SCH (17:00)
[2018-11-01 17:04] VITALS: BP 187/77
[2018-11-01 17:05] VITALS: BP 187/77
[2018-11-01] MEDS ORDERED: MIDAZOLAM HCL 2 MG/2 ML VIAL ONE (17:33)
[2018-11-01] MEDS: HYDROMORPHONE 2MG/ML 2 MG/ML ML IV PRN ×3 (18:40→23:03)
[2018-11-01] MEDS: ONDANSETRON HCL 4 MG ORAL DISINTEGRATING TAB PO PRN ×2 (18:40→23:03)
[2018-11-01] MEDS ORDERED: LIDOCAINE HCL 2% LOCAL INJ 5 ML SDV VIAL INJ ONE (19:12)
[2018-11-01] MEDS ORDERED: SEVOFLURANE INHAL SOLN 250 ML PEN BTL ONE (19:12)
[2018-11-01] MEDS ORDERED: ACETAMINOPHEN 1000 MG/100 ML IV ONE (19:12)
[2018-11-01] MEDS ORDERED: KETOROLAC TROMETHAMINE 30 MG/ML VIAL ONE (19:12)
[2018-11-01] MEDS ORDERED: GLYCOPYRROLATE INJ 1MG/ 5 ML SYR ONE (19:12)
[2018-11-01] MEDS ORDERED: PROPOFOL IV EMULSION 10 MG/ML 20 ML VIAL ONE (19:12)
[2018-11-01] MEDS ORDERED: NEOSTIGMINE 5 MG/5ML SYR ONE (19:12)
[2018-11-01] MEDS ORDERED: ROCURONIUM BROMIDE 10 MG/ML 5ML VIAL ONE (19:12)
[2018-11-01] MEDS ORDERED: DEXAMETHASONE SOD PHOS INJ 4 MG/ML VIAL ONE (19:12)
[2018-11-01 20:00] VITALS: BP 153/69
[2018-11-01] MEDS: DOCUSATE SODIUM 100 MG CAP PO SCH (21:19)
[2018-11-01 23:19] VITALS: BP 153/69
[2018-11-02] VITALS (8 sets, daily range): BP systolic 103–153; BP diastolic 59–69
[2018-11-02] MEDS: LACTATED RINGER'S 1,000 ML IV SCH ×3 (00:44→20:44)
[2018-11-02] MEDS: ONDANSETRON HCL 4 MG ORAL DISINTEGRATING TAB PO PRN ×5 (03:17→20:37)
[2018-11-02] MEDS: HYDROMORPHONE 2MG/ML 2 MG/ML ML IV PRN ×2 (03:17→08:14)
[2018-11-02] MEDS: CEFAZOLIN SOD 1 GM/D5W 50ML 50 ML IV SCH ×2 (06:18→22:00)
--- NOTE | 2018-11-02 08:46 | Operative Report ---
DATE OF PROCEDURE: November 01, 2018 PREOPERATIVE DIAGNOSES 1. Macromastia. 2. Abdominal lipodystrophy with diastasis recti. PROCEDURES 1. Bilateral breast reduction. 2. Abdominoplasty with plication of diastasis recti. ANESTHESIA: General. HISTORY: The patient is a 53-year-old female with said diagnoses. Risks, benefits and alternatives of treatment were discussed with the patient. She has signed the [place] consent forms. DETAILS OF PROCEDURE: Patient was marked preoperatively in the holding area in the upright position. She was then brought to the operating theater, and after the induction of adequate general anesthesia, she was prepped and draped in a supine position. A time out was performed. The patient had been marked using standard inferior pedicle Tre pattern technique. The nipple areolar complexes were then circumscribed with a 45 mm cookie cutter. Twelve centimeter wide pedicles were then marked out, and then the pedicles were de-epithelialized using a scalpel. The wound beds were made hemostatic using electrocautery. The medial and lateral edges of the pedicle were then developed using electrocautery through the full thickness of the breast tissue down to the prepectoral fascia of the chest wall. Around the apex of the nipple areolar complexes, care was taken to ensure that several centimeters of tissue remained cephalad to the nipple areolar complexes to ensure adequate vascularity. Once the pedicles had been completely developed, they were left in situ. Care taken not to shear them off the prepectoral fascia. At this point, wide undermining of the medial, lateral and central flaps of the breasts were done in the prepectoral plane using the electrocautery. Hemostasis was ensured using the electrocautery. At this point, with the flap completely undermined and the pedicles developed, the medial and lateral triangles were then incised through the skin and subcutaneous tissue sharply. Then using the electrocautery, the medial and lateral triangles were thus removed from each side. Centrally, the keyhole pattern was incised through the skin and subcutaneous tissues and through the full thickness of the breast using the electrocautery. These were removed as well. The upper flaps were then held vertically. Using a curved Head scissors, the flaps were thinned judiciously to an adequate thickness to maintain vascularity, but achieve optimal shape. At this point, the rough estimates of the resected specimen on the right was approximately 1000 g and on the left side 1100 g. All the wounds were irrigated with saline containing antibiotic, and hemostasis made absolute using the electrocautery. The flaps were temporarily tacked closed using surgical clips. The patient was then sat up and assessed. The symmetry between both breasts was noted to be symmetric. However, some more resection was required in order to remove the redundant tissue laterally on the chest wall. This was marked out. The patient was then made supine. The tissue was excised through the skin and subcutaneous layers, and hemostasis made absolute using the electrocautery. These areas were then tacked closed with the surgical clips once again. The patient was sat up and assessed for symmetry and shape, and it was noted to be satisfactory. She was then made supine. The total resected specimen on the right side now weighed 1065 g and on the left side 1152 g. The surgical clips were removed. The pedicles were inspected. Nipple areolar complexes were noted to be completely viable and the wounds were noted to be hemostatic. The breasts were closed using 3-0 Monocryl in an interrupted buried fashion followed by a 4-0 Monocryl running subcuticular stitch. Steri-Strips were applied to the incisions. The midline from the xiphoid down to the pubic symphysis was marked out with a 0 silk suture. This line was carried down to the introitus for further placement of the umbilicus in the midline. The lower abdominal incision was incised using a 10 blade through the skin and subcutaneous tissues. Bleeding was controlled using the electrocautery. Electrocautery was used to deepen the incision through the subcutaneous tissue and Brittney's fascia. The anterior abdominal wall fascia was identified, and using this as a guide, the soft tissues of the abdomen were then elevated using electrocautery. At the level of the umbilicus, the dissection was terminated. The umbilicus was then sharply circumscribed and released from the skin and subcutaneous tissues with a 15 blade. The anterior abdominal wall was then elevated leaving the umbilicus in situ. Care taken to coapt all of the umbilical perforators. The dissection continued cephalad to the xiphoid and the costal margins were reached. At this point, appreciation of the diastasis recti was done. A plication was marked out from the xiphoid to the pubic symphysis with the maximum width around the umbilicus corresponding to approximately 7-8 cm. The plication was performed using 0 Ethibond in an interrupted buried figure-of-8 fashion, first from the xiphoid down to the level of the umbilicus, and then from the infraumbilical area down to the pubic symphysis. The wound was then irrigated with antibiotic containing solution. Hemostasis was made absolute using the electrocautery. The patient was then sat up. The redundant skin and subcutaneous tissue was marked out. Then this was excised with a 10 blade. The wound edges made hemostatic using the electrocautery. Because of the thickness of the abdominal flap, it was judiciously thinned of subcutaneous layer so that it matched the inferior portion of the wound. After this was performed, hemostasis was made absolute once again. A 15-[place] Rodolfo-Bo drains were placed in the lateral recesses of the incision. One drain below the umbilicus and the other drain above the umbilicus, and secured to the skin with nylon sutures. Brittney's fascia was then repaired using 2-0 PDS in an interrupted buried fashion. The deep dermis was repaired using absorbable surgical des. In the midline between the xiphoid and the pubic symphysis, the marking from the umbilicus had been performed. A 2 cm vertical ellipse of tissue was incised through the skin and subcutaneous tissues. The bleeding was controlled using the electrocautery. The surrounding adipose tissue was removed and thinned in order to give a satisfactory contour. Then the umbilicus was brought out onto the anterior abdominal wall. It was secured to the abdominal wall using 3-0 Monocryl sutures in an interrupted buried fashion followed by simple 5-0 nylon cuticular sutures. At the completion of the procedure, the nipple areolar complexes, as well as the umbilicus appeared well vascularized. Steri-Strips were applied to the lower abdominal incision. The umbilicus was stented with Xeroform gauze and then dressed with sterile dressings. Sterile dressings were then placed over the lower abdominal incision over the Steri-Strips as well. The estimated blood loss for the entire procedure was approximately 150-200 mL. The patient tolerated the procedure well. She was placed in hospital bed with the head of the bed at 45 degrees and the knees elevated, and the Clarke remained in situ. The patient was transferred to the recovery room and then transferred to her hospital bed for overnight care and observation. Job#: [id number] [place]
[2018-11-02] MEDS: DOCUSATE SODIUM 100 MG CAP PO SCH ×2 (09:11→20:37)
[2018-11-02] MEDS: ENOXAPARIN SOD INJ 40 MG/0.4 ML SYR SC SCH (09:11)
[2018-11-02] MEDS: HYDROCODONE/APAP 7.5MG-325MG 1 EA TAB PO PRN ×3 (11:47→20:37)
[2018-11-02] MEDS ORDERED: CEFAZOLIN SOD 1 GM in WATER STERILE 10ML VIAL 10 ML IV SCH (22:00)
[2018-11-03 01:00] VITALS: BP 110/60
[2018-11-03] MEDS: HYDROCODONE/APAP 7.5MG-325MG 1 EA TAB PO PRN ×5 (01:03→18:14)
[2018-11-03] MEDS: ONDANSETRON HCL 4 MG ORAL DISINTEGRATING TAB PO PRN ×5 (01:03→18:14)
[2018-11-03 05:45] VITALS: BP 117/77
[2018-11-03] MEDS: CEFAZOLIN SOD 1 GM/D5W 50ML 50 ML IV SCH ×2 (06:05→14:11)
[2018-11-03] MEDS: LACTATED RINGER'S 1,000 ML IV SCH ×2 (06:44→16:44)
[2018-11-03 07:31] VITALS: BP 120/62
[2018-11-03] MEDS: ENOXAPARIN SOD INJ 40 MG/0.4 ML SYR SC SCH (09:19)
[2018-11-03] MEDS: DOCUSATE SODIUM 100 MG CAP PO SCH (09:19)
[2018-11-03 09:22] VITALS: BP 120/62
[2018-11-03 11:54] VITALS: BP 114/62
[2018-11-03 15:46] VITALS: BP 127/66
[2018-11-03] MEDS ORDERED: KEFLEX500 MG PO (16:31)
[2018-11-03] MEDS ORDERED: NORCO 7.5-3251 EACH PO (16:32)
== END 2018-11-03 18:21 | disposition home or self-care (01) ==
LOC: OR 05:15 → PACU V 15:40 → MED/SURG 16:07
PROVIDERS: ADMIT Plastic Surgery; ATTEND Plastic Surgery
DX: N62 Hypertrophy of breast (principal); E88.1 Lipodystrophy, not elsewhere classified; M62.08 Separation of muscle (nontraumatic), other site; I10 Essential (primary) hypertension; Z01.810 Encounter for preprocedural cardiovascular examination; Z79.82 Long term (current) use of aspirin
CPT/HCPCS: 15830; 15847; 19318; 88305; 93005; G0378 ×3; J0131; J0690 ×3; J1100; J1170 ×2; J1650 ×3; J1885; J2001; J2250; J2405; J2704; J2765; J3490; J7120 ×2; Q0162 ×3